=== PATIENT | female | born 1955 | race Caucasian/White ===

== ENCOUNTER 2018-06-11 12:08 | Inpatient (IN) | payer MEDICARE, MEDICAID ==
[2018-06-11] MEDS ORDERED: Azithromycin 500 MG AdvVial IV SCH (13:00)
[2018-06-11] MEDS: Sodium Chloride 0.9% 10 ML Syringe FLUSH PRN (13:30)
[2018-06-11] MEDS: cefTRIAXone 1 GM in Sodium Chloride 0.9% 50 ML IV SCH (13:30)
--- NOTE | 2018-06-11 13:55 | CR ---
PA AND LATERAL CHEST, 06/11/18 Comparison made to a prior exam dated 03/09/16. The heart size is normal. There is a poorly defined infiltrate in the left perihilar region and left lower and middle lobes suspicious for pneumonia. There is also mild soft tissue fullness along the inferior aspect of the left hilum. The right lung is clear. No pneumothorax. No pleural effusions. Followup exam is recommended to confirm resolution of the above. If not, chest CT will be required. [id number] MTDD
[2018-06-11] MEDS ORDERED: Albuterol/Ipratropium 3.0-0.5 MG/3 ML Neb Soln ONE (16:22)
[2018-06-11] MEDS: Azithromycin 500 MG in Sodium Chloride 0.9% 250 ML IV SCH (16:24)
[2018-06-11] MEDS ORDERED: traZODone 100 MG Tab PO PRN (19:42)
[2018-06-11] MEDS ORDERED: rOPINIRole 1 MG Tab ONE (20:33)
[2018-06-11] MEDS: rOPINIRole 1 MG Tab PO SCH (21:00)
[2018-06-11] MEDS: Omeprazole 20 MG Cap.CR PO SCH (21:10)
[2018-06-11] MEDS: Albuterol/Ipratropium 3.0-0.5 MG/3 ML Neb Soln INH PRN (21:17)
[2018-06-11] MEDS ORDERED: traMADol 50 MG Tab ONE (21:19)
[2018-06-12] MEDS: traMADol 50 MG Tab PO PRN ×2 (03:51→08:57)
[2018-06-12] MEDS: Albuterol/Ipratropium 3.0-0.5 MG/3 ML Neb Soln INH PRN ×2 (03:59→08:00)
[2018-06-12] MEDS: Omeprazole 20 MG Cap.CR PO SCH ×2 (07:37→19:52)
[2018-06-12] MEDS: Metoprolol Succinate 25 MG Tab.ER PO SCH (07:56)
[2018-06-12] MEDS: Aspirin 81 MG Tab.EC PO SCH (07:57)
[2018-06-12] MEDS: Azithromycin 500 MG in Sodium Chloride 0.9% 250 ML IV SCH (07:59)
[2018-06-12] MEDS ORDERED: Enalapril 5 MG Tab PO SCH (08:00)
[2018-06-12] MEDS: PSYLLIUM PO SCH (08:00)
--- NOTE | 2018-06-12 08:28 | HP ---
Date of Service: 06/11/2018 HPI: The patient is a 62-year-old female, comes into the ER with a chief complaint of chest pain. She notes she has had the chest pain for 2 weeks. She is not complaining of fevers or chills, but she is having some shortness of breath. The chest pain is a little worse when she takes a deep breath. She is not really complaining of cough or coughing up any sputum, but she is obviously having a little bit of difficulty breathing. ALLERGIES: CELEBREX WHICH GIVE HER HIVES, PROZAC WHICH GIVES HER HIVES, AND LORAZEPAM WHICH GIVE HER HIVES. CURRENT MEDICATIONS: Loratadine 10 mg p.o. daily, aspirin 81 mg p.o. daily, enalapril 20 mg p.o. daily, lamotrigine 200 mg in the morning, Senokot 8.6/50 in the morning, Cholecalciferol 5000 units in the morning, vitamin B 100 mg in the morning, vitamin C 125 mg in the morning, metoprolol 25 mg in the morning, omeprazole 20 mg p.o. b.i.d., lamotrigine 150 mg at bedtime, ropinirole 1 mg at bedtime, and Symbicort she uses 2 puffs b.i.d. She takes Tylenol, Metamucil, and milk of magnesia p.r.n. She takes trazodone 50 mg 1 to 2 at bedtime as needed. She has a Ventolin metered dose inhaler, and she uses a DuoNeb twice a day. PAST MEDICAL HISTORY: Significant for COPD, chronic constipation, GE reflux. She has had recurrent UTIs. She has had migraines, and she has anxiety and depression for which she sees Dr. Carmona. PHYSICAL EXAMINATION: GENERAL: She is alert, oriented, but has a somewhat unusual affect. VITAL SIGNS: Initial vitals on arrival are temperature is 99, pulse is 112, blood pressure is 112/83, respirations are 22, O2 saturation is 95% on 2 L. Her O2 saturation was 90 on room air. HEENT: Generally unremarkable. NECK: Supple. No nodes. LUNGS: She has some scattered wheezes. She has crackles at the left base. HEART: Regular sinus rhythm. ABDOMEN: Benign. EXTREMITIES: No clubbing, cyanosis, or edema. LABORATORY DATA: White count was 22.9, 81% neutrophils. Hemoglobin and hematocrit were 14.4 and 42.9. She had a slightly decreased chloride of 96 and a slightly elevated anion gap of 19.3. BUN was 22, creatinine was 1.39, glucose was 178. Chest x-ray was obtained, which shows a left lower lobe pneumonia. We also did a troponin, which was negative, and serum lactate, which was 1.57, and 12-lead EKG showed some nonspecific changes. ASSESSMENT: Left lower lobe pneumonia. PLAN: I have admitted the patient. We did obtain blood cultures prior to starting her on Rocephin 1 g and azithromycin 500 mg p.o. daily. We will go ahead and continue her DuoNebs. At this point, I do not really want to start her on any steroids, as she seems to be breathing okay, but we may do that tomorrow. We will go ahead and repeat a white count in the morning, and the patient will be on supplemental oxygen to keep her O2 saturation greater than 92%. KALEY/COLTON
[2018-06-12] MEDS: Sodium Chloride 0.9% 10 ML Syringe FLUSH PRN (09:55)
[2018-06-12] MEDS ORDERED: predniSONE 20 MG Tab PO SCH (10:00)
--- NOTE | 2018-06-12 12:22 | PN ---
DATE OF VISIT: 06/12/2018 The patient was admitted yesterday for left lower lobe pneumonia. She is doing a little better. She thinks she feels a little bit better. Her temperature is down to 99.1 this morning, so she is afebrile. She did have an elevated white count the other day , which was minimally changed this morning. On admission, it was 22.9, this morning, it is 21, so really not much of a change. Her fever is a little better. Her respiratory rate is little better. Her O2 sats are not particularly good. She is requiring 3 L to run at 92%. The patient does have a history of COPD. PHYSICAL EXAMINATION: VITAL SIGNS: Her temperature is already noted above. LUNGS: Her lungs have some decreased breath sounds. She does have crackles at the left base. HEART: Regular sinus rhythm. EXTREMITIES: No lower extremity edema. ASSESSMENT: Left lower lobe pneumonia with chronic obstructive pulmonary disease, some improvement, but her O2 sats are not improving, particularly well. We will go ahead and add some prednisone for the chronic obstructive pulmonary disease component. I wanted to try and hold off to see what her white count would do, it really has not changed much, but her breathing is not good enough that I want to hold off any longer. We will go ahead and start her on 40 mg of prednisone. We will continue on her current antibiotics. We will monitor the fever curve. She spikes fever. We will consider changing antibiotics. We did do a blood culture. She is not really producing any sputum, so we can culture that. I would consider switching over to something like Cipro if she is not responding to the azithromycin and Rocephin. She seems to be improving, but not a lot. Again, I do not know how long she has had this. KALEY/COLTON /[id number] CELIA
[2018-06-12] MEDS: cefTRIAXone 1 GM in Sodium Chloride 0.9% 50 ML IV SCH (13:00)
[2018-06-12] MEDS: rOPINIRole 1 MG Tab PO SCH (19:51)
[2018-06-12] MEDS: LAMOTRIGINE 200 MG PO SCH (19:52)
[2018-06-13] MEDS: Albuterol/Ipratropium 3.0-0.5 MG/3 ML Neb Soln INH PRN ×2 (01:00→17:41)
[2018-06-13] MEDS: traMADol 50 MG Tab PO PRN ×3 (01:05→20:00)
[2018-06-13] MEDS: Azithromycin 500 MG in Sodium Chloride 0.9% 250 ML IV SCH (08:07)
[2018-06-13] MEDS: predniSONE 20 MG Tab PO SCH (08:09)
[2018-06-13] MEDS: Omeprazole 20 MG Cap.CR PO SCH ×2 (08:10→15:11)
[2018-06-13] MEDS: Aspirin 81 MG Tab.EC PO SCH (08:10)
[2018-06-13] MEDS: Metoprolol Succinate 25 MG Tab.ER PO SCH (08:16)
[2018-06-13] MEDS: PSYLLIUM PO SCH (08:23)
[2018-06-13] MEDS: Acetaminophen 500 MG Tab PO PRN ×2 (08:57→17:45)
[2018-06-13] MEDS: cefTRIAXone 1 GM in Sodium Chloride 0.9% 50 ML IV SCH (12:19)
[2018-06-13] MEDS: Nicotine 21 MG/24 Hr Patch TRDERM SCH (15:11)
--- NOTE | 2018-06-13 15:17 | PN ---
DATE OF VISIT: 06/13/2018 SUBJECTIVE: The patient is a 62-year-old female was admitted the other day with a left lower lobe pneumonia. The patient is feeling better today. OBJECTIVE: VITAL SIGNS: She is afebrile, temperature is 97.1, pulse is 76 which is much better than when she was admitted, blood pressure is now 102/65, respiratory rate is 18, and her O2 saturation is 94% on 3 L which again is all better than when she was admitted. GENERAL: She is alert, oriented, in no apparent distress. LUNGS: Clear. She has a few slight crackles at the right and more crackles on the left base, but no wheezing. HEART: Regular sinus rhythm. Overall, the patient seems to be definitely improved. LABORATORY DATA: Her labs today are better despite getting the prednisone. Her breathing has improved significantly since then. White count is 16.7, it was 22 on admission, so it is coming down as well as her fever has come down and her breathing has improved. PLAN: We will likely keep her for another day or two and then discharge her to home on oral medications. As long as she continues to improve, there have been no growth on blood cultures so far. KALEY/COLTON /[id number] CELIA
[2018-06-13] MEDS: LAMOTRIGINE 200 MG PO SCH (20:00)
[2018-06-13] MEDS: rOPINIRole 1 MG Tab PO SCH (20:00)
[2018-06-13] MEDS: traZODone 50 MG Tab PO PRN (20:00)
[2018-06-14] MEDS: Omeprazole 20 MG Cap.CR PO SCH ×2 (08:27→17:00)
[2018-06-14] MEDS: Nicotine 21 MG/24 Hr Patch TRDERM SCH (08:28)
[2018-06-14] MEDS: Aspirin 81 MG Tab.EC PO SCH (08:28)
[2018-06-14] MEDS: predniSONE 20 MG Tab PO SCH (08:29)
[2018-06-14] MEDS: Metoprolol Succinate 25 MG Tab.ER PO SCH (08:29)
[2018-06-14] MEDS: PSYLLIUM PO SCH (08:29)
[2018-06-14] MEDS: Albuterol/Ipratropium 3.0-0.5 MG/3 ML Neb Soln INH PRN ×3 (08:42→17:00)
[2018-06-14] MEDS: Azithromycin 500 MG in Sodium Chloride 0.9% 250 ML IV SCH (09:43)
--- NOTE | 2018-06-14 12:15 | PN ---
DATE OF VISIT: 06/14/2018 The patient is a 62-year-old female, admitted with a left lower lobe pneumonia. She notes she is breathing better today and overall she looks better. The main problem is still that her O2 saturation is a little low. She is running 94% on 3 L. Her lungs sound much better today. Her other vital signs are stable. Vitals are; temperature is 98.8, pulse 72, blood pressure is 105/67, respirations 20, O2 saturation is 94% on 3 L as noted. We will go ahead and try weaning down her oxygen as long as she is greater than 92% that should be fine. Her lungs are actually clear today. I do not appreciate the crackles that she had previously. We will go ahead and set her up for a CBC and a repeat chest x-ray tomorrow. She can probably be discharged home on oral antibiotics, but she may need supplemental oxygen at home, which I do not think is really going to go well given the patient's overall mental status and continued smoking so hopefully her O2 will improve enough that she will not need it. On the other hand, I do not really know what the patient's baseline is either, and she does have a history of COPD. We will go ahead and recheck her tomorrow and attempt to wean down the oxygen between now and then.She will likely benefit form home health. I would be very reluctant to give her home oxygen as she is unlikely going to recognize the danger of smoking with it. KALEY/COLTON /[id number] CELIA
[2018-06-14] MEDS: cefTRIAXone 1 GM in Sodium Chloride 0.9% 50 ML IV SCH (12:47)
[2018-06-14] MEDS: traMADol 50 MG Tab PO PRN ×2 (13:07→19:51)
[2018-06-14] MEDS: rOPINIRole 1 MG Tab PO SCH (19:50)
[2018-06-14] MEDS: traZODone 50 MG Tab PO PRN (19:50)
[2018-06-14] MEDS: LAMOTRIGINE 200 MG PO SCH (19:51)
[2018-06-15] MEDS: Albuterol/Ipratropium 3.0-0.5 MG/3 ML Neb Soln INH PRN ×2 (06:23→18:10)
[2018-06-15] MEDS: Omeprazole 20 MG Cap.CR PO SCH ×2 (08:46→16:57)
[2018-06-15] MEDS: Aspirin 81 MG Tab.EC PO SCH (08:46)
[2018-06-15] MEDS: Nicotine 21 MG/24 Hr Patch TRDERM SCH (08:47)
[2018-06-15] MEDS: Metoprolol Succinate 25 MG Tab.ER PO SCH (08:48)
[2018-06-15] MEDS: Azithromycin 500 MG in Sodium Chloride 0.9% 250 ML IV SCH (08:49)
[2018-06-15] MEDS ORDERED: predniSONE 20 MG Tab ONE (08:50)
[2018-06-15] MEDS: predniSONE 20 MG Tab PO SCH (08:51)
[2018-06-15] MEDS: PSYLLIUM PO SCH (08:55)
[2018-06-15] MEDS: cefTRIAXone 1 GM in Sodium Chloride 0.9% 50 ML IV SCH (13:09)
--- NOTE | 2018-06-15 16:20 | PN ---
DATE OF VISIT:06/15/2018 The patient is a 62-year-old female admitted with a left lower lobe pneumonia. The patient is overall doing better. We did repeat her x-ray. She appears to be a little more consolidated and has a somewhat larger effusion that she had on admission. Temperature is 98.5, pulse is 78, blood pressure is 149/82, respirations are 18. She remains at 92% on 2 L. We have tried weaning down the patient's oxygen, but she still is having a hard time staying up above 92. She is currently as noted on the 2 L. We did give her an incentive spirometer yesterday. We also repeated her white count today, which is definitely better. White count is 11.6, 76% neutrophils. Again, she is afebrile but her O2 saturation just is not coming up. She is still on prednisone 40 mg p.o. daily. We will go ahead and probably discontinue the Zithromax tomorrow and start weaning down the prednisone. The patient did have a CT scan done today which shows the consolidation in the left lower lobe and they did note that they could not rule out an underlying neoplastic process, so the patient will need to be followed for eventual clearing of this or a further workup will need to be done. At this point, again, I am still reluctant to send her home because she does smoke and she does have some issues, and I am not sure how safe she would be having home oxygen and smoking. I do not think she quite grasps the risk above smoking and home oxygen. KALEY/COLTON /[id number] CELIA
[2018-06-15] MEDS: traZODone 50 MG Tab PO PRN (19:29)
[2018-06-15] MEDS: rOPINIRole 1 MG Tab PO SCH (19:29)
[2018-06-15] MEDS: traMADol 50 MG Tab PO PRN (19:29)
[2018-06-15] MEDS: LAMOTRIGINE 200 MG PO SCH (19:30)
--- NOTE | 2018-06-15 19:59 | CT ---
DATE OF SERVICE: 06/15/2018 CLINICAL DATA: Pleural effusion, hilar fullness. UNENHANCED CHEST CT: Multislice acquisition through the chest without IV contrast was performed. There is extensive infiltrate and consolidation in the left lower lobe consistent with pneumonia. There is a small left pleural effusion. There is a minimal right pleural effusion and mild atelectatic changes in the dependent portion of the right lower lobe. The lungs are otherwise clear. No pneumothorax. The heart size is normal. No significant pericardial effusion. There are coronary artery calcifications. There is a 5 mm pleural base nodule in the right middle lobe. It is unchanged in appearance from a prior CT dated 06/16/2015 consistent with benign nodule. There is also a 4 mm nodular density in the left upper lobe that is unchanged from the prior study. No further workup of these is indicated. Patient is status post gastric banding. No other significant findings. IMPRESSION: Extensive infiltrate and consolidation left lower lobe most likely representing pneumonia. Followup exam is necessary to confirm resolution. Small bilateral pleural effusions, left greater than right. Other findings as discussed above. [id number] [facility]
[2018-06-15] MEDS: Sodium Chloride 0.9% 10 ML Syringe FLUSH PRN (20:00)
[2018-06-16] MEDS: traMADol 50 MG Tab PO PRN ×2 (04:52→19:47)
[2018-06-16] MEDS: Albuterol/Ipratropium 3.0-0.5 MG/3 ML Neb Soln INH PRN ×3 (04:52→19:48)
[2018-06-16] MEDS: Omeprazole 20 MG Cap.CR PO SCH ×2 (07:23→16:12)
[2018-06-16] MEDS: predniSONE 20 MG Tab PO SCH (08:17)
[2018-06-16] MEDS: Aspirin 81 MG Tab.EC PO SCH (08:17)
[2018-06-16] MEDS: Metoprolol Succinate 25 MG Tab.ER PO SCH (08:19)
[2018-06-16] MEDS: Nicotine 21 MG/24 Hr Patch TRDERM SCH (08:22)
--- NOTE | 2018-06-16 08:31 | CR ---
DATE OF SERVICE: 06/15/2018 CLINICAL DATA: Hypoxia PA AND LATERAL CHEST: Comparison is made to a prior exam dated 06/11/2018. The heart size is stable. There is progressive infiltrate and consolidation in the left lower lobe on today's exam consistent with progressive pneumonia. There is blunting of the left costophrenic angle consistent with a left pleural effusion. There is also a small right pleural effusion. The exam is otherwise unchanged from the prior. Continued followup is recommended. [facility]
--- NOTE | 2018-06-16 09:49 | PCM.PN ---
- General Info Date of Service: 06/16/18 Subjective Update: Pt states she would like to go home and is feeling better. Functional Status: Reports: Tolerating Diet, Ambulating, Incentive Spirometry - Review of Systems General: Reports: Weakness HEENT: Reports: No Symptoms Pulmonary: Reports: Shortness of Breath Cardiovascular: Reports: Dyspnea on Exertion. Denies: Chest Pain, Palpitations Gastrointestinal: Reports: No Symptoms. Denies: Abdominal Pain Musculoskeletal: Reports: No Symptoms Skin: Reports: No Symptoms - Patient Data Vitals - Most Recent: Last Vital Signs Temp 97.6 F 06/16/18 06:07 Pulse 64 06/16/18 08:19 Resp 18 06/16/18 06:07 BP 142/79 H 06/16/18 08:20 Pulse Ox 95 06/16/18 06:07 Weight - Most Recent: 136 lb 6 oz I&O - Last 24 Hours: Intake & Output 06/15/18 06/16/18 06/16/18 22:59 06:59 14:59 Intake Total 1560 600 Output Total 850 600 Balance 710 0 Lab Results Last 24 Hours: Laboratory Results - last 24 hr 06/15/18 Range/Units 10:10 WBC 11.6 H D (4.0-11.0) K/uL RBC 4.26 (3.80-5.80) M/uL Hgb 12.9 (11.5-16.5) g/dL Hct 38.3 (37.0-47.0) % MCV 90 (76-96) fL MCH 30.3 (27.0-32.0) pg MCHC 33.7 (31.0-35.0) g/dL RDW 14.9 (11.0-16.0) % Plt Count 320 (150-500) K/uL MPV 8.0 (6.0-10.0) fL Neut % (Auto) 76.7 H (45.0-70.0) % Lymph % (Auto) 16.3 L (20.0-40.0) % [place] % (Auto) 6.2 (3.0-10.0) % Eos % (Auto) 0.7 L (1.0-5.0) % Baso % (Auto) 0.1 (0.0-0.5) % Neut # (Auto) 8.92 H (2.00-7.50) K/uL Lymph # (Auto) 1.89 (1.50-4.00) K/uL [place] # (Auto) 0.72 (0.20-0.80) K/uL Eos # (Auto) 0.08 (0.04-0.40) K/uL Baso # (Auto) 0.01 L (0.02-0.10) K/uL Med Orders - Current: Current Medications Acetaminophen (Tylenol Extra Strength) 500 mg PO Q8HR PRN PRN Reason: Pain Last Admin: 06/13/18 17:45 Dose: 500 mg Albuterol/Ipratropium (Duoneb 3.0-0.5 Mg/3 Ml) 3 ml INH Q4HR PRN PRN Reason: Dyspnea Last Admin: 06/16/18 04:52 Dose: 3 ml Aspirin (Halfprin) 81 mg PO DAILY [facility] Last Admin: 06/16/18 08:17 Dose: 81 mg Enalapril Maleate (Vasotec) 5 mg PO DAILY [facility] Last Admin: 06/16/18 08:20 Dose: 5 mg Ceftriaxone Sodium 1 gm/ (Sodium Chloride) 50 mls @ 100 mls/hr IV Q24H [facility] Last Admin: 06/15/18 13:09 Dose: 100 mls/hr Lamotrigine (Lamictal) 150 mg PO DAILY [facility] Last Admin: 06/16/18 08:17 Dose: 150 mg Metoprolol Succinate (Toprol Xl) 25 mg PO DAILY [facility] Last Admin: 06/16/18 08:19 Dose: 25 mg Nicotine (Habitrol) 21 mg TRDERM DAILY [facility] Last Admin: 06/16/18 08:22 Dose: 21 mg Non-Formulary Medication (Lamotrigine [Lamotrigine]) 200 mg PO BEDTIME [facility] Last Admin: 06/15/18 19:30 Dose: 200 mg Omeprazole (Omeprazole) 20 mg PO 0700,1600 [facility] Last Admin: 06/16/18 07:23 Dose: 20 mg Prednisone (Prednisone) 40 mg PO 0800 [facility] Last Admin: 06/16/18 08:17 Dose: 40 mg Psyllium Hydrophilic Mucilloid (Metamucil Sf) 0 gm PO DAILY [facility] Last Admin: 06/15/18 08:55 Dose: 2 tsp Ropinirole HCl (Requip) 1 mg PO BEDTIME [facility] Last Admin: 06/15/18 19:29 Dose: 1 mg Senna/Docusate Sodium (Senna Plus) 1 tab PO DAILY [facility] Last Admin: 06/16/18 08:18 Dose: 1 tab Sodium Chloride (Saline Flush) 10 ml FLUSH ASDIRECTED PRN PRN Reason: Keep Vein Open Last Admin: 06/15/18 20:00 Dose: 10 ml Tramadol HCl (Ultram) 50 mg PO Q6H PRN PRN Reason: Pain (moderate 4-6) Last Admin: 06/16/18 04:52 Dose: 50 mg Trazodone HCl (Trazodone) 50 - 100 mg PO BEDTIME PRN PRN Reason: INSOMNIA Last Admin: 06/15/18 19:29 Dose: 100 mg Discontinued Medications Albuterol/Ipratropium (Duoneb 3.0-0.5 Mg/3 Ml) Confirm Administered Dose 3 ml .ROUTE .STK-MED ONE Stop: 06/11/18 16:23 Last Admin: 06/11/18 16:30 Dose: 3 ml Enalapril Maleate (Vasotec) 5 mg PO DAILY [facility] Last Admin: 06/12/18 07:59 Dose: Not Given Enalapril Maleate (Vasotec) Confirm Administered Dose 5 mg .ROUTE .STK-MED ONE Stop: 06/12/18 07:39 Last Admin: 06/12/18 07:58 Dose: 5 mg Azithromycin 500 mg/ Sodium (Chloride) 250 mls @ 250 mls/hr IV DAILY [facility] Last Admin: 06/15/18 08:49 Dose: 250 mls/hr Lamotrigine (Lamictal) 150 mg PO BEDTIME [facility] Last Admin: 06/11/18 21:10 Dose: 150 mg Omeprazole (Omeprazole) 20 mg PO BIDAC [facility] Last Admin: 06/12/18 19:52 Dose: 20 mg Prednisone (Prednisone) 40 mg PO WITHBREAKFAST [facility] Last Admin: 06/12/18 09:51 Dose: 40 mg Prednisone (Prednisone) Confirm Administered Dose 40 mg .ROUTE .STK-MED ONE Stop: 06/15/18 08:51 Last Admin: 06/15/18 10:20 Dose: Not Given Ropinirole HCl (Requip) Confirm Administered Dose 1 mg .ROUTE .STK-MED ONE Stop: 06/11/18 20:34 Last Admin: 06/11/18 21:33 Dose: Not Given Tramadol HCl (Ultram) Confirm Administered Dose 50 mg .ROUTE .STK-MED ONE Stop: 06/11/18 21:20 Last Admin: 06/11/18 21:35 Dose: Not Given Trazodone HCl (Trazodone) 200 mg PO BEDTIME PRN PRN Reason: Insomnia Last Admin: 06/11/18 21:00 Dose: 100 mg - Exam Quality Assessment: Supplemental Oxygen General: Alert, No Acute Distress HEENT: Pupils Reactive, Mucous Membr. Moist/[place]: Supple, Trachea Midline, No JVD Lungs: Normal Respiratory Effort, Decreased Breath Sounds (to bases, bilaterally ). No: Crackles, Rhonchi Cardiovascular: Regular Rate, Regular Rhythm GI/Abdominal Exam: Normal Bowel Sounds, Soft, Non-Tender Back Exam: Normal Inspection Extremities: Normal Inspection, Non-Tender, No Pedal Edema, Normal Capillary Refill Skin: Warm, Dry Psy/Mental Status: Alert, Normal Affect, Normal Mood - Problem List & Annotations (1) Left lower lobe pneumonia SNOMED Code(s): 014719520 Code(s): J18.1 - LOBAR PNEUMONIA, UNSPECIFIED ORGANISM Status: Acute Current Visit: Yes (2) Weakness SNOMED Code(s): 93648140 Code(s): R53.1 - WEAKNESS Status: Acute Current Visit: Yes (3) Supplemental oxygen dependent SNOMED Code(s): 592113178503 Code(s): Z99.81 - DEPENDENCE ON SUPPLEMENTAL OXYGEN Status: Acute Current Visit: Yes - Problem List Review Problem List Initiated/Reviewed/Updated: Yes - Plan Plan:: Pt has improved, overall, but Oxygen level drops with activity and pt is weak. She does live alone and states she has cats at home she wants to go home to take care of. Pt does continue to smoke when at home and states she doesn't plan to quit. Discussed option of home oxygen and no smoking with oxygen in the home. Pt wouldn't understand this option of not smoking and use of oxygen in home and possible explosion in home with this. Will order PT/OT for consult today for strengthening and check SpO2 with activity. Currently the oxygen is at 1 lpm N/C and SpO2 drops to 70-80% with activity and no oxygen. Pt is insistent on going home. At this time we will need to increase her activity and assess oxygen with this added activity.
[2018-06-16] MEDS: PSYLLIUM PO SCH (10:43)
[2018-06-16] MEDS: Sodium Chloride 0.9% 10 ML Syringe FLUSH PRN (12:45)
[2018-06-16] MEDS: cefTRIAXone 1 GM in Sodium Chloride 0.9% 50 ML IV SCH (12:46)
[2018-06-16] MEDS: LAMOTRIGINE 200 MG PO SCH (19:47)
[2018-06-16] MEDS: rOPINIRole 1 MG Tab PO SCH (19:47)
[2018-06-16] MEDS: traZODone 50 MG Tab PO PRN (19:48)
[2018-06-17] MEDS: Omeprazole 20 MG Cap.CR PO SCH (07:51)
[2018-06-17] MEDS: Aspirin 81 MG Tab.EC PO SCH (07:53)
[2018-06-17] MEDS: PSYLLIUM PO SCH (07:54)
[2018-06-17] MEDS: Metoprolol Succinate 25 MG Tab.ER PO SCH (07:59)
[2018-06-17] MEDS: predniSONE 20 MG Tab PO SCH (08:03)
[2018-06-17] MEDS: Nicotine 21 MG/24 Hr Patch TRDERM SCH (08:04)
[2018-06-17] MEDS: Albuterol/Ipratropium 3.0-0.5 MG/3 ML Neb Soln INH PRN (12:09)
[2018-06-17] MEDS: traMADol 50 MG Tab PO PRN (12:09)
[2018-06-17 12:12] VITALS: BP 117/72
[2018-06-17] MEDS: cefTRIAXone 1 GM in Sodium Chloride 0.9% 50 ML IV SCH (13:12)
--- NOTE | 2018-06-17 14:39 | PCM.DCSUM1 ---
Discharge Summary - Hospital Course HPI Initial Comments: pt was admitted with LLL pneumonia and COPD 06-11-2018 and has had Azithromycin and rocephin IV, as well as Prednisone and oxygen per nasal cannula. A CT scan was completed 06-15-2018 with dense consolidation and can't rule out neoplasm. This will need to be worked up upon discharge. She does smoke at home and reports she has no intentions of quitting this. I don't feel comfortable sending her home with oxygen related to her smoking and memory concerns/ mental status. Staff report her SpO2 after activity is 92%. Pt has been instructed and reminded to use the incentive spirometer for deep breathing and to assist with clearing lungs. Will discharge today on Ceftin 500 mg PO bid X 5 day and taper dose of Prednisone. Will continue home medications. Recommend follow-up in clinic in 2-3 days. Diagnosis: Stroke: No - Discharge Data Discharge Date: 06/17/18 Discharge Disposition: Home, Self-Care 01 Condition: Good - Discharge Diagnosis/Problem(s) (1) Left lower lobe pneumonia SNOMED Code(s): 187407614 ICD Code: J18.1 - LOBAR PNEUMONIA, UNSPECIFIED ORGANISM Status: Acute Current Visit: Yes (2) Weakness SNOMED Code(s): 25686857 ICD Code: R53.1 - WEAKNESS Status: Acute Current Visit: Yes (3) Supplemental oxygen dependent SNOMED Code(s): 910752131902 ICD Code: Z99.81 - DEPENDENCE ON SUPPLEMENTAL OXYGEN Status: Resolved Current Visit: Yes (4) COPD (chronic obstructive pulmonary disease) SNOMED Code(s): 02737448 ICD Code: J44.9 - CHRONIC OBSTRUCTIVE PULMONARY DISEASE, UNSPECIFIED Status : Acute Current Visit: Yes - Patient Summary/Data Consults: Consultations 06/16/18 09:50 Consult to Occupational Therapy [OT Evaluation and Treatment] [CONS] Routine Please Evaluate and Treat. OT Reason for Consult: Strengthening This query below is only for informational purposes and is not editable. Admission Diagnosis/Problem: Pneumonia PT Evaluation and Treatment [CONS] Routine Please Evaluate and Treat. PT Reason for Consult: Strengthening This query below is only for informational purposes and is not editable. Admission Diagnosis/Problem: Pneumonia - Patient Instructions Diet: Regular Diet as Tolerated Activity: As Tolerated, No Strenuous Activities, Rest and Relax Today Driving: Do Not Drive Showering/Bathing: May Shower (follow up in clinic in 2-3 days.) Notify Provider of: Fever - Discharge Plan *PRESCRIPTION DRUG MONITORING PROGRAM REVIEWED*: Not Applicable *COPY OF PRESCRIPTION DRUG MONITORING REPORT IN PATIENT SALTY: Not Applicable ( Follow-up in clinic in 2-3 days.) Prescriptions/Med Rec: Cefuroxime Axetil [Ceftin] 500 mg PO BID 5 Days #10 tablet predniSONE [Prednisone] 10 mg PO DAILY #18 tablet Home Medications: Home Meds Aspirin [Adult Low Dose Aspirin EC] 81 mg PO DAILY 06/16/15 [History] Budesonide/Formoterol [Symbicort 160-4.5 MCG] 2 puff IH ASDIRECTED PRN 06/16/15 [History] Cholecalciferol (Vitamin D3) [Vitamin D3] 5,000 unit PO DAILY 06/16/15 [History] Enalapril [Vasotec] 5 mg PO DAILY 06/16/15 [History] Magnesium Hydroxide [Milk of Magnesia] 15 - 30 mg PO ASDIRECTED PRN 06/16/15 [ History] Omeprazole [Prilosec] 1 tab PO BID 06/16/15 [History] Psyllium Husk [Metamucil] 2 - 4 tsp PO DAILY 06/16/15 [History] lamoTRIgine [Lamotrigine] 150 mg PO BEDTIME 06/16/15 [History] rOPINIRole [Requip] 1 mg PO BEDTIME 06/16/15 [History] Acetaminophen [Tylenol] 500 mg PO Q8HR PRN 06/11/18 [History] Albuterol [Ventolin HFA] 2 puff IH Q4HR PRN 06/11/18 [History] Ferrous Fumarate/Vitamin C [Vitron-C] 125 mg PO DAILY 06/11/18 [History] Metoprolol Succinate 25 mg PO DAILY 06/11/18 [History] Sennosides/Docusate Sodium [Sennosides-Docusate Sodium] 8.6 - 50 mg PO DAILY 07/29 [History] Vitamin B Complex 100 mg PO DAILY 06/11/18 [History] lamoTRIgine [Lamotrigine] 200 mg PO DAILY 06/11/18 [History] traZODone 100 - 200 mg PO BEDTIME PRN 06/11/18 [History] Cefuroxime Axetil [Ceftin] 500 mg PO BID 5 Days #10 tablet 06/17/18 [Rx] predniSONE [Prednisone] 10 mg PO DAILY #18 tablet 06/17/18 [Rx] traMADol [Ultram] 50 mg PO Q6H PRN tablet 06/17/18 [Rx] Oxygen Therapy Mode: Room Air Referrals: PCP,None [Primary Care Provider] - - Discharge Summary/Plan Comment DC Time >30 min.: No Discharge Summary/Plan Comment: Will discharge today on Ceftin 500 mg PO bid X 5 day and taper dose of Prednisone. Will continue home medications. Recommend follow-up in clinic in 2 -3 days. - General Info Date of Service: 06/17/18 Admission Dx/Problem (Free Text: left lower lobe pneumonia and COPD Subjective Update: Pt reports feeling better today and would like to go home to take care of her cats. Functional Status: Reports: Pain Controlled, Tolerating Diet, Ambulating, Incentive Spirometry - Review of Systems General: Denies: Fever, Fatigue, Chills HEENT: Reports: Glasses. Denies: Ear Pain, Headaches, Sore Throat Pulmonary: Reports: Cough. Denies: Sputum, Wheezing Cardiovascular: Reports: No Symptoms. Denies: Chest Pain, Edema Gastrointestinal: Reports: No Symptoms. Denies: Abdominal Pain, Constipation, Diarrhea Genitourinary: Reports: No Symptoms Musculoskeletal: Reports: No Symptoms Skin: Reports: No Symptoms Neurological: Denies: Dizziness, Headache, Difficulty Walking Psychiatric: Reports: No Symptoms - Patient Data Vitals - Most Recent: Last Vital Signs Temp 98.6 F 06/17/18 12:00 Pulse 66 06/17/18 12:00 Resp 20 06/17/18 12:00 BP 117/72 06/17/18 12:00 Pulse Ox 93 L 06/17/18 12:00 Weight - Most Recent: 136 lb 6 oz I&O - Last 24 hours: Intake & Output 06/16/18 06/17/18 06/17/18 22:59 06:59 14:59 Intake Total 1550 320 Output Total 550 Balance 1000 320 CAROLINE Results - Last 24 hrs: Microbiology 06/11/18 13:05 Aerobic Blood Culture - Final Blood NO GROWTH AFTER 5 DAYS Anaerobic Blood Culture - Final NO GROWTH AFTER 5 DAYS Med Orders - Current: Current Medications Acetaminophen (Tylenol Extra Strength) 500 mg PO Q8HR PRN PRN Reason: Pain Last Admin: 06/13/18 17:45 Dose: 500 mg Albuterol/Ipratropium (Duoneb 3.0-0.5 Mg/3 Ml) 3 ml INH Q4HR PRN PRN Reason: Dyspnea Last Admin: 06/17/18 12:09 Dose: 3 ml Aspirin (Halfprin) 81 mg PO DAILY [facility] Last Admin: 06/17/18 07:53 Dose: 81 mg Enalapril Maleate (Vasotec) 5 mg PO DAILY [facility] Last Admin: 06/17/18 07:59 Dose: 5 mg Ceftriaxone Sodium 1 gm/ (Sodium Chloride) 50 mls @ 100 mls/hr IV Q24H [facility] Last Admin: 06/17/18 13:12 Dose: 100 mls/hr Lamotrigine (Lamictal) 150 mg PO DAILY [facility] Last Admin: 06/17/18 07:53 Dose: 150 mg Metoprolol Succinate (Toprol Xl) 25 mg PO DAILY [facility] Last Admin: 06/17/18 07:59 Dose: 25 mg Nicotine (Habitrol) 21 mg TRDERM DAILY [facility] Last Admin: 06/17/18 08:04 Dose: 21 mg Non-Formulary Medication (Lamotrigine [Lamotrigine]) 200 mg PO BEDTIME [facility] Last Admin: 06/16/18 19:47 Dose: 200 mg Omeprazole (Omeprazole) 20 mg PO 0700,1600 [facility] Last Admin: 06/17/18 07:51 Dose: 20 mg Prednisone (Prednisone) 40 mg PO 0800 [facility] Last Admin: 06/17/18 08:03 Dose: 40 mg Psyllium Hydrophilic Mucilloid (Metamucil Sf) 0 gm PO DAILY [facility] Last Admin: 06/17/18 07:54 Dose: 2 tsp Ropinirole HCl (Requip) 1 mg PO BEDTIME [facility] Last Admin: 06/16/18 19:47 Dose: 1 mg Senna/Docusate Sodium (Senna Plus) 1 tab PO DAILY [facility] Last Admin: 06/17/18 07:54 Dose: 1 tab Sodium Chloride (Saline Flush) 10 ml FLUSH ASDIRECTED PRN PRN Reason: Keep Vein Open Last Admin: 06/16/18 12:45 Dose: 10 ml Tramadol HCl (Ultram) 50 mg PO Q6H PRN PRN Reason: Pain (moderate 4-6) Last Admin: 06/17/18 12:09 Dose: 50 mg Trazodone HCl (Trazodone) 50 - 100 mg PO BEDTIME PRN PRN Reason: INSOMNIA Last Admin: 06/16/18 19:48 Dose: 100 mg Discontinued Medications Albuterol/Ipratropium (Duoneb 3.0-0.5 Mg/3 Ml) Confirm Administered Dose 3 ml .ROUTE .STK-MED ONE Stop: 06/11/18 16:23 Last Admin: 06/11/18 16:30 Dose: 3 ml Enalapril Maleate (Vasotec) 5 mg PO DAILY [facility] Last Admin: 06/12/18 07:59 Dose: Not Given Enalapril Maleate (Vasotec) Confirm Administered Dose 5 mg .ROUTE .STK-MED ONE Stop: 06/12/18 07:39 Last Admin: 06/12/18 07:58 Dose: 5 mg Azithromycin 500 mg/ Sodium (Chloride) 250 mls @ 250 mls/hr IV DAILY [facility] Last Admin: 06/15/18 08:49 Dose: 250 mls/hr Lamotrigine (Lamictal) 150 mg PO BEDTIME [facility] Last Admin: 06/11/18 21:10 Dose: 150 mg Omeprazole (Omeprazole) 20 mg PO BIDAC [facility] Last Admin: 06/12/18 19:52 Dose: 20 mg Prednisone (Prednisone) 40 mg PO WITHBREAKFAST [facility] Last Admin: 06/12/18 09:51 Dose: 40 mg Prednisone (Prednisone) Confirm Administered Dose 40 mg .ROUTE .STK-MED ONE Stop: 06/15/18 08:51 Last Admin: 06/15/18 10:20 Dose: Not Given Ropinirole HCl (Requip) Confirm Administered Dose 1 mg .ROUTE .STK-MED ONE Stop: 06/11/18 20:34 Last Admin: 06/11/18 21:33 Dose: Not Given Tramadol HCl (Ultram) Confirm Administered Dose 50 mg .ROUTE .STK-MED ONE Stop: 06/11/18 21:20 Last Admin: 06/11/18 21:35 Dose: Not Given Trazodone HCl (Trazodone) 200 mg PO BEDTIME PRN PRN Reason: Insomnia Last Admin: 06/11/18 21:00 Dose: 100 mg - Exam Quality Assessment: Denies: Supplemental Oxygen General: Reports: Alert, Cooperative, No Acute Distress HEENT: Reports: Pupils Equal, Mucous Membr. Moist/Nelagoney Neck: Reports: Supple, Trachea Midline Lungs: Reports: Decreased Breath Sounds (to bases, bilaterally). Denies: Crackles, Rhonchi Cardiovascular: Reports: Regular Rate, Regular Rhythm GI/Abdominal Exam: Soft, Non-Tender, No Distention. No: Rebound (Female) Exam: Deferred Rectal (Female) Exam: Deferred Back Exam: Reports: Normal Inspection. Denies: Paraspinal Tenderness, Vertebral Tenderness Extremities: Normal Inspection, Normal Range of Motion, Non-Tender, No Pedal Edema Skin: Reports: Warm, Dry Neurological: Reports: Normal Speech, Strength Equal Bilateral Psy/Mental Status: Reports: Alert, Normal Mood, Other (becomes anxious with stress, confusion in new situations, repeatedly states "I love you" and thank you for coming.)
== END 2018-06-17 16:22 | disposition home or self-care (01) | DRG 190 ==
LOC: LB.ED 12:08 → LB.MS 12:40
PROVIDERS: ADMIT Family Medicine; ATTEND Family Medicine
DX: J44.0 Chronic obstructive pulmonary disease with (acute) lower respiratory infection (principal); J18.9 Pneumonia, unspecified organism; F17.210 Nicotine dependence, cigarettes, uncomplicated; R09.02 Hypoxemia; R06.02 Shortness of breath; R07.9 Chest pain, unspecified; R53.1 Weakness; K59.09 Other constipation; K21.9 Gastro-esophageal reflux disease without esophagitis; F32.9 Major depressive disorder, single episode, unspecified; F41.9 Anxiety disorder, unspecified; Z87.440 Personal history of urinary (tract) infections; R91.8 Other nonspecific abnormal finding of lung field; Z79.82 Long term (current) use of aspirin; Z88.8 Allergy status to other drugs, medicaments and biological substances; Z79.51 Long term (current) use of inhaled steroids
CPT/HCPCS: 36415; 71046; 71250; 80048; 81001; 82962; 83605; 84484; 85025; 87040; 93005; 97161-GP; 97165-GO; 97530-GO; 99285-25; A9270-GY; J0456; J0696; J7050; J7620-GY

== ENCOUNTER 2018-10-22 02:37 | Emergency (ER) | payer MEDICARE ==
[2018-10-22] MEDS ORDERED: Amoxicillin/Clavulanate K 875-125 MG Tab ONE (03:00)
[2018-10-22] MEDS ORDERED: predniSONE 10 MG Tab ONE (03:00)
[2018-10-22 03:03] VITALS: BP 154/97
[2018-10-22] MEDS: Acetaminophen 325 MG Tab PO ONE (04:54)
[2018-10-22] MEDS: Albuterol 0.083% 2.5 MG/3 ML Neb Soln NEB ONE (04:54)
--- NOTE | 2018-10-22 09:50 | EDM.PDOC ---
ED HPI GENERAL MEDICAL PROBLEM - General Chief Complaint: Respiratory Problem Stated Complaint: coughing up phlegm Time Seen by Provider: 10/22/18 03:10 Source of Information: Reports: Patient, Family History Limitations: Reports: Other (Patient with history of Wernickes) - History of Present Illness INITIAL COMMENTS - FREE TEXT/NARRATIVE: This is a 63yo pleasant F in the ER for concerns of cough and chest congestion with some neck and chest wall discomfort from coughing. She denies fever but daughter reports a low grade temp and mother feeling warm. Patient appears in good spirits with a mild cough. She states she has had this cough for 4 days and it will not go away. Daughter and patient are concerned as the patient has had pneumonia in the past. There are no other issues today. Onset: Gradual Duration: Day(s): Location: Reports: Chest - Related Data Allergies Allergy/AdvReac Type Severity Reaction Status Date / Time celecoxib [From Celebrex] Allergy Hives Verified 06/11/18 14:47 fluoxetine HCl [From Prozac] Allergy Hives Verified 06/11/18 14:47 lorazepam Allergy Hives Verified 06/11/18 14:47 Home Meds: Home Meds Aspirin [Adult Low Dose Aspirin EC] 81 mg PO DAILY 06/16/15 [History] Budesonide/Formoterol [Symbicort 160-4.5 MCG] 2 puff IH ASDIRECTED PRN 06/16/15 [History] Cholecalciferol (Vitamin D3) [Vitamin D3] 5,000 unit PO DAILY 06/16/15 [History] Enalapril [Vasotec] 5 mg PO DAILY 06/16/15 [History] Magnesium Hydroxide [Milk of Magnesia] 15 - 30 mg PO ASDIRECTED PRN 06/16/15 [ History] Omeprazole [Prilosec] 1 tab PO BID 06/16/15 [History] Psyllium Husk [Metamucil] 2 - 4 tsp PO DAILY 06/16/15 [History] lamoTRIgine [Lamotrigine] 150 mg PO BEDTIME 06/16/15 [History] rOPINIRole [Requip] 1 mg PO BEDTIME 06/16/15 [History] Acetaminophen [Tylenol] 500 mg PO Q8HR PRN 06/11/18 [History] Albuterol [Ventolin HFA] 2 puff IH Q4HR PRN 06/11/18 [History] Ferrous Fumarate/Vitamin C [Vitron-C] 125 mg PO DAILY 06/11/18 [History] Metoprolol Succinate 25 mg PO DAILY 06/11/18 [History] Sennosides/Docusate Sodium [Sennosides-Docusate Sodium] 8.6 - 50 mg PO DAILY 07/29 [History] Vitamin B Complex 100 mg PO DAILY 06/11/18 [History] lamoTRIgine [Lamotrigine] 200 mg PO DAILY 06/11/18 [History] traZODone 100 - 200 mg PO BEDTIME PRN 06/11/18 [History] Cefuroxime Axetil [Ceftin] 500 mg PO BID 5 Days #10 tablet 06/17/18 [Rx] predniSONE [Prednisone] 10 mg PO DAILY #18 tablet 06/17/18 [Rx] traMADol [Ultram] 50 mg PO Q6H PRN tablet 06/17/18 [Rx] Past Medical History HEENT History: Reports: Impaired Vision Respiratory History: Reports: Bronchitis, Recurrent, COPD, Other (See Below) Other Respiratory History: Uses inhaler. Gastrointestinal History: Reports: Chronic Constipation, GERD Genitourinary History: Reports: Renal Calculus, UTI, Recurrent HEATER TENDER History: Reports: Other HEATER TENDER History: possible miscarriage (unsure) Musculoskeletal History: Reports: Arthritis, Osteoporosis, Other (See Below) Other Musculoskeletal History: unsure if it is osteoarthritis or arthritis and osteoporosis Neurological History: Reports: Migraines Psychiatric History: Reports: Anxiety, Depression Endocrine/Metabolic History: Reports: Diabetes, Type II, Other (See Below) Other Endocrine/Metabolic History: rx for vitamin D - Infectious Disease History Infectious Disease History: Reports: Other (See Below) Other Infectious Disease History: unknown - Past Surgical History HEENT Surgical History: Reports: Other (See Below) Other HEENT Surgeries/Procedures: neck surgery for "calcium build up" Cardiovascular Surgical History: Reports: Varicose GI Surgical History: Reports: Other (See Below) Other GI Surgeries/Procedures: "lap band" Female Surgical History: Reports: Hysterectomy Musculoskeletal Surgical History: Reports: Other (See Below) Other Musculoskeletal Surgeries/Procedures:: # vertebra lower? - History Comment History Comment: Patient presented to the clinic for chest pain and was brought over to the ER. Patient reports that she has had chest pain, chest pain below the left breast, lower back pain, and pain in the left groin for the past month or so. Says she is having some shortness of breath but uses an inhaler for this which really helps. Denies any history of cardiovascular disease. Social & Family History - Family History Family Medical History: Noncontributory Cardiac: Reports: Heart Failure - Caffeine Use Caffeine Use: Reports: Coffee ED ROS GENERAL - Review of Systems Review Of Systems: ROS reveals no pertinent complaints other than HPI. ED EXAM, GENERAL - Physical Exam Exam: See Below Exam Limited By: No Limitations General Appearance: Alert, WD/WN, No Apparent Distress Eye Exam: Bilateral Eye: EOMI, PERRL Ears: Normal External Exam Nose: Normal Inspection Throat/Mouth: Normal Inspection Head: Atraumatic, Normocephalic Neck: Normal Inspection Respiratory/Chest: No Respiratory Distress, No Accessory Muscle Use, Chest Non- Tender, Rhonchi Cardiovascular: Normal Peripheral Pulses, Regular Rate, Rhythm Peripheral Pulses: 2+: Dorsalis Pedis (L), Dorsalis Pedis (R) GI/Abdominal: Normal Bowel Sounds Neurological: Alert, Normal Gait, No Motor/Sensory Deficits, Other (history of wernickes) Skin Exam: Warm, Dry, Intact Course - Vital Signs Last Recorded V/S: Last Vital Signs Temp 37.7 C 10/22/18 02:45 Pulse 96 10/22/18 02:45 Resp 30 H 10/22/18 02:45 BP 154/97 H 10/22/18 02:45 Pulse Ox 91 L 10/22/18 02:45 - Orders/Labs/Meds Meds: Medications Discontinued Medications Generic Name Dose Route Start Last Admin Trade Name Dylan PRN Reason Stop Dose Admin Acetaminophen 650 mg 10/22/18 03:31 10/22/18 04:54 Tylenol PO 10/22/18 03:32 650 mg NOW ONE Administration Albuterol 2.5 mg 10/22/18 04:42 10/22/18 04:54 Proventil Neb Soln NEB 10/22/18 04:43 2.5 mg ONETIME ONE Administration Amoxicillin/Clavulanate Potassium 20 tab 10/22/18 03:00 Augmentin 875 Mg/125 Mg .ROUTE 10/22/18 03:01 .STK-MED ONE Prednisone 150 mg 10/22/18 03:00 Prednisone .ROUTE 10/22/18 03:01 .STK-MED ONE Departure - Departure Time of Disposition: 04:00 Disposition: Home, Self-Care 01 Condition: Good Clinical Impression: COPD (chronic obstructive pulmonary disease), Chest congestion - Discharge Information Instructions: Amoxicillin; Clavulanic Acid tablets, Chronic Obstructive Pulmonary Disease, [id number], Acute Bronchitis, Adult, [id number], Prednisone tablets Referrals: PCP,None [Primary Care Provider] - Forms: ED Department Discharge Additional Instructions: Take the antibiotic everyday at home until the medication. Use Tylenol for the low grade fevers and body aches. Drink plenty of water Eat yogurt with the antibiotics Use the nebulizers every 6 hours, if she is needing the nebulizers more often, she needs to be seen in the clinic. Please return if she is not improving after 2 days or return sooner if she is getting worse. - Problem List & Annotations (1) COPD (chronic obstructive pulmonary disease) SNOMED Code(s): 31100177 Code(s): J44.9 - CHRONIC OBSTRUCTIVE PULMONARY DISEASE, UNSPECIFIED Status : Acute Qualifiers: COPD type: chronic bronchitis (2) Chest congestion SNOMED Code(s): 17435492 Code(s): R09.89 - OTH SYMPTOMS AND SIGNS INVOLVING THE CIRC AND RESP SYSTEMS Status: Acute Priority: High - Problem List Review Problem List Initiated/Reviewed/Updated: Yes - Assessment/Plan Plan: Counseled on likely mild COPD exacerbation and for close monitoring and f/u in clinic if symptoms persist or worsen. Discussed antibiotics use and prednisone use. Counseled on rtc for f/u as routine.
== END 2018-10-22 03:40 | disposition home or self-care (01) ==
LOC: LB.ED 02:37
DX: J44.9 Chronic obstructive pulmonary disease, unspecified (principal); K21.9 Gastro-esophageal reflux disease without esophagitis; F41.9 Anxiety disorder, unspecified; F32.9 Major depressive disorder, single episode, unspecified; E11.9 Type 2 diabetes mellitus without complications; Z79.899 Other long term (current) drug therapy; Z79.82 Long term (current) use of aspirin; Z88.1 Allergy status to other antibiotic agents; Z88.8 Allergy status to other drugs, medicaments and biological substances
CPT/HCPCS: 99283-25; A9270-GY

== ENCOUNTER 2019-05-07 01:22 | Emergency (ER) | payer MEDICARE ==
--- NOTE | 2019-05-07 02:10 | EDM.PDOC ---
ED HPI GENERAL MEDICAL PROBLEM - General Chief Complaint: General Stated Complaint: high BP and weakness Time Seen by Provider: 05/07/19 02:00 Source of Information: Reports: Patient, Family History Limitations: Reports: No Limitations - History of Present Illness INITIAL COMMENTS - FREE TEXT/NARRATIVE: This patient presents to the ED via EMS for evaluation of "not herself" and high blood pressure.She is accompanied by her daughter who states there were too many days of medications missing from the patient's mediation box. She normally has her medications set up on Tuesdays and this evening she was missing medications for --; her daughter is suspicious that she may have taken all of the medications in the last 1-2 days. Daughter states her BP became higher than typical this evening-she was checking in repeatedly with a automatic blood pressure device at home and that she seemed unsteady when returning from the bathroom after having a bowel movement at approximately 1 am. The patient sustained no falls. She has not had any vomiting, diarrhea, fevers, or other signs or symptoms of illness of late. Daughter states she "panicked" when she noted the medications were missing and assumed her mother took an "overdose." The patient states her abdomen and legs hurt tonight. Her daughter states that she was "very tired" at 1 am. Onset: Today, Sudden Onset Date: 05/07/19 Onset Time: 01:00 Duration: Other (episode of unsteadiness at ~1 am) Location: Reports: Abdomen, Generalized Quality: Reports: Same as Previous Episode, Other (abdomen and legs hurts- typical for patient accordng to nursing and daughter.) Improves with: Reports: None Worsens with: Reports: None Associated Symptoms: Reports: Nausea/Vomiting. Denies: Cough, Fever/Chills, Headaches, Loss of Appetite, Shortness of Breath, Syncope, Weakness - Related Data Allergies Allergy/AdvReac Type Severity Reaction Status Date / Time celecoxib [From Celebrex] Allergy Hives Verified 06/11/18 14:47 fluoxetine HCl [From Prozac] Allergy Hives Verified 06/11/18 14:47 lorazepam Allergy Hives Verified 06/11/18 14:47 Home Meds: Home Meds Aspirin [Adult Low Dose Aspirin EC] 81 mg PO DAILY 06/16/15 [History] Budesonide/Formoterol [Symbicort 160-4.5 MCG] 2 puff IH ASDIRECTED PRN 06/16/15 [History] Cholecalciferol (Vitamin D3) [Vitamin D3] 5,000 unit PO DAILY 06/16/15 [History] Enalapril [Vasotec] 5 mg PO DAILY 06/16/15 [History] Magnesium Hydroxide [Milk of Magnesia] 15 - 30 mg PO ASDIRECTED PRN 06/16/15 [ History] Omeprazole [Prilosec] 1 tab PO BID 06/16/15 [History] Psyllium Husk [Metamucil] 2 - 4 tsp PO DAILY 06/16/15 [History] lamoTRIgine [Lamotrigine] 150 mg PO BEDTIME 06/16/15 [History] rOPINIRole [Requip] 1 mg PO BEDTIME 06/16/15 [History] Acetaminophen [Tylenol] 500 mg PO Q8HR PRN 06/11/18 [History] Albuterol [Ventolin HFA] 2 puff IH Q4HR PRN 06/11/18 [History] Ferrous Fumarate/Vitamin C [Vitron-C] 125 mg PO DAILY 06/11/18 [History] Metoprolol Succinate 25 mg PO DAILY 06/11/18 [History] Sennosides/Docusate Sodium [Sennosides-Docusate Sodium] 8.6 - 50 mg PO DAILY 07/29 [History] Vitamin B Complex 100 mg PO DAILY 06/11/18 [History] lamoTRIgine [Lamotrigine] 200 mg PO DAILY 06/11/18 [History] traZODone 100 - 200 mg PO BEDTIME PRN 06/11/18 [History] Cefuroxime Axetil [Ceftin] 500 mg PO BID 5 Days #10 tablet 06/17/18 [Rx] predniSONE [Prednisone] 10 mg PO DAILY #18 tablet 06/17/18 [Rx] traMADol [Ultram] 50 mg PO Q6H PRN tablet 06/17/18 [Rx] predniSONE [Prednisone] 50 mg PO DAILY #7 tablet 10/22/18 [Rx] Past Medical History HEENT History: Reports: Impaired Vision Respiratory History: Reports: Bronchitis, Recurrent, COPD, Other (See Below) Other Respiratory History: Uses inhaler. Gastrointestinal History: Reports: Chronic Constipation, GERD Genitourinary History: Reports: Renal Calculus, UTI, Recurrent HERBARIUM CURATOR History: Reports: Other HERBARIUM CURATOR History: possible miscarriage (unsure) Musculoskeletal History: Reports: Arthritis, Osteoporosis, Other (See Below) Other Musculoskeletal History: unsure if it is osteoarthritis or arthritis and osteoporosis Neurological History: Reports: Migraines Psychiatric History: Reports: Anxiety, Depression Endocrine/Metabolic History: Reports: Diabetes, Type II, Other (See Below) Other Endocrine/Metabolic History: rx for vitamin D - Infectious Disease History Infectious Disease History: Reports: Other (See Below) Other Infectious Disease History: unknown - Past Surgical History HEENT Surgical History: Reports: Other (See Below) Other HEENT Surgeries/Procedures: neck surgery for "calcium build up" Cardiovascular Surgical History: Reports: Varicose GI Surgical History: Reports: Other (See Below) Other GI Surgeries/Procedures: "lap band" Female Surgical History: Reports: Hysterectomy Musculoskeletal Surgical History: Reports: Other (See Below) Other Musculoskeletal Surgeries/Procedures:: # vertebra lower? - History Comment History Comment: Patient presented to the clinic for chest pain and was brought over to the ER. Patient reports that she has had chest pain, chest pain below the left breast, lower back pain, and pain in the left groin for the past month or so. Says she is having some shortness of breath but uses an inhaler for this which really helps. Denies any history of cardiovascular disease. Social & Family History - Family History Family Medical History: Noncontributory Cardiac: Reports: Heart Failure - Caffeine Use Caffeine Use: Reports: Coffee ED ROS GENERAL - Review of Systems Review Of Systems: See Below Constitutional: Reports: Fatigue. Denies: Fever, Weakness, Decreased Appetite, Weight Gain HEENT: Reports: No Symptoms Respiratory: Reports: No Symptoms Cardiovascular: Reports: Blood Pressure Problem. Denies: Chest Pain, Dyspnea on Exertion, Edema, Syncope Endocrine: Reports: Fatigue GI/Abdominal: Denies: Abdominal Pain, Anorexia, Diarrhea, Decreased Appetite, Difficulty Swallowing, Distension, Nausea, Vomiting : Denies: Dysuria, Frequency, Hematuria, Incontinence, Urgency Musculoskeletal: Reports: Leg Pain Skin: Reports: No Symptoms Neurological: Reports: Gait Disturbance, Other (brief "stumble" when walkng) Psychiatric: Denies: Agitation, Anxiety, Depression, Hallucinations, Mood Lability ED EXAM, GENERAL - Physical Exam Exam: See Below Exam Limited By: Other (mental health concer) General Appearance: Alert, WD/WN, No Apparent Distress, Other (periods of moving indiscriminately on cart, rubbing abdomen and anterior things; ) Eye Exam: Bilateral Eye: PERRL Ears: Normal External Exam, Hearing Grossly Normal Nose: Normal Inspection Throat/Mouth: Normal Inspection Head: Atraumatic, Normocephalic Neck: Normal Inspection, Full Range of Motion Respiratory/Chest: No Respiratory Distress, Lungs Clear, Normal Breath Sounds, No Accessory Muscle Use Cardiovascular: Normal Peripheral Pulses, Regular Rate, Rhythm GI/Abdominal: Normal Bowel Sounds, Soft, Non-Tender, No Organomegaly, No Distention Back Exam: Normal Inspection Extremities: Normal Inspection, Normal Range of Motion, Other (near constant movements of extremities; rubbing abdomen and anterior thighs) Psychiatric: Normal Affect, Normal Mood, Anxious, Other (Patient's behavior in ED typical per daughter) Course - Re-Assessments/Exams Free Text/Narrative Re-Assessment/Exam: 05/07/19 02:26 This patient presents to the ED for evaluation of "not herself." On arrival, the patient's vital signs were WNL for her. Movements and behavior observed n ED are at baseline for this patient according to daughter and nursing staff. There is no definitive way to determine whether this patient did in fact, take more of her prescribed medications than typical.The patient is hemodynamically stable with no evidence of end organ disfunction. There is no history of chest pain or respiratory distress. There is no psychiatric alteration or decompensation noted. I have a low index of suspicion for a serious abdominal etiology for the behavior change reported by her daughter. There is no evidence of infectious disease.There is no history of or physical evidence of a recent trauma.There is no recent history of a change in her LOC and no history of falls. Given her normal physical examination and vital signs, I am reassured and feel comfortable sending her home in the care of her daughter. She will restart her regular medications in 2 days and will follow up with the clinic or the ED as needed. 05/07/19 02:54 Departure - Departure Time of Disposition: 02:55 Disposition: Home, Self-Care 01 Condition: Good Clinical Impression: Behavior concern - Discharge Information *PRESCRIPTION DRUG MONITORING PROGRAM REVIEWED*: No Referrals: PCP,None [Primary Care Provider] - Forms: ED Department Discharge
[2019-05-07] MEDS ORDERED: Ondansetron 4 MG Tab.DIS ONE (02:23)
[2019-05-07] MEDS ORDERED: Ondansetron 4 MG Tab.DIS PO ONE (02:31)
[2019-05-07 03:06] VITALS: BP 147/70; PULSE 70
== END 2019-05-07 03:00 | disposition home or self-care (01) ==
LOC: LB.ED 01:22
DX: R46.89 Other symptoms and signs involving appearance and behavior (principal); J44.9 Chronic obstructive pulmonary disease, unspecified; E11.9 Type 2 diabetes mellitus without complications; Z88.6 Allergy status to analgesic agent; Z88.8 Allergy status to other drugs, medicaments and biological substances; Z79.82 Long term (current) use of aspirin; Z79.51 Long term (current) use of inhaled steroids
CPT/HCPCS: 99284; A9270; 99282; A0425; A0429

== ENCOUNTER 2022-05-29 23:32 | Emergency (ER) | payer MEDICAID ==
[2022-05-29] MEDS ORDERED: Sodium Chloride 0.9% 10 ML Syringe FLUSH PRN (23:35)
[2022-05-29] MEDS ORDERED: Ciprofloxacin 500 MG Tab ONE (23:45)
[2022-05-30] MEDS ORDERED: LORazepam 2 MG/ML SDV IVPUSH ONE (00:03)
[2022-05-30 01:35] VITALS: BP 151/79; PULSE 79
[2022-05-30 01:35] LABS: TROPONIN I HIGH SENSITIVITY 8.4 pg/ml (<=60.4)
== END 2022-05-30 04:30 | disposition home or self-care (01) ==
LOC: LB.ED 23:32
DX: N39.0 Urinary tract infection, site not specified (principal); J44.9 Chronic obstructive pulmonary disease, unspecified; K21.9 Gastro-esophageal reflux disease without esophagitis; M19.90 Unspecified osteoarthritis, unspecified site; E11.9 Type 2 diabetes mellitus without complications; Z88.1 Allergy status to other antibiotic agents; Z88.8 Allergy status to other drugs, medicaments and biological substances; Z79.82 Long term (current) use of aspirin; Z79.899 Other long term (current) drug therapy
CPT/HCPCS: 36415; 70450; 80048; 81001; 83735; 84100; 84484; 85027; 87086; 99285; A0425; A0429; A9270-GY

== ENCOUNTER 2022-07-13 14:28 | Emergency (ER) | payer MEDICAID ==
[2022-07-13] MEDS ORDERED: Sulfamethoxazole/Trimethoprim 800-160 MG Tab ONE (15:30)
[2022-07-13] MEDS ORDERED: Sodium Chloride 0.9% 10 ML Syringe FLUSH PRN (15:37)
[2022-07-13] MEDS ORDERED: Sodium Chloride 0.9% 1,000 ML IV SCH (15:45)
[2022-07-13 15:58] VITALS: BP 111/80
[2022-07-13] MEDS ORDERED: SUMAtriptan 6 MG/0.5 ML SDV SUBCUT ONE (16:35)
[2022-07-13 19:06] VITALS: PULSE 83
== END 2022-07-13 18:50 | disposition home or self-care (01) ==
LOC: LB.ED 14:28
DX: N39.0 Urinary tract infection, site not specified (principal); J44.9 Chronic obstructive pulmonary disease, unspecified; E11.9 Type 2 diabetes mellitus without complications; Z79.899 Other long term (current) drug therapy; Z88.8 Allergy status to other drugs, medicaments and biological substances; Z79.82 Long term (current) use of aspirin
CPT/HCPCS: 36415; 80048; 81001; 85027; 87086; 96360; 96361; 99284-25; 99285; A9270-GY; J7030